=== PATIENT | male | born 1970 | race Caucasian/White ===

== ENCOUNTER 2017-02-12 20:16 | Emergency (ER) | payer OTHER, BC ==
[~2017-02-12] VITALS: Ht 177.8 cm; Wt 100.2 kg
[~2017-02-12 20:16] MED LIST: ASPIRIN81 MG PO; CARVEDILOL3.125 MG PO; EFFIENT10 MG PO; FLEXERIL PO; INVOKANA300 MG PO; LIPITOR80 MG PO; METFORMIN500 MG PO; RAMIPRIL2.5 MG PO; ULTRAM50 M1 PO; VICTOZA18 MG/3 ML SC
[2017-02-12] MEDS ORDERED: ORPHENADRINE100 MG PO (21:55)
[2017-02-12] MEDS ORDERED: PERCOCET 5/325M1 TAB PO (21:55)
[2017-02-12 22:03] VITALS: BP 132/89
== END 2017-02-12 22:05 | disposition home or self-care (01) | DRG 563 ==
LOC: ED 20:16
DX: S39.012A Strain of muscle, fascia and tendon of lower back, initial encounter (principal); I10 Essential (primary) hypertension; E11.9 Type 2 diabetes mellitus without complications; I25.2 Old myocardial infarction; V89.2XXA Person injured in unspecified motor-vehicle accident, traffic, initial encounter

== ENCOUNTER 2019-12-07 | Emergency (ER) | payer OTHER ==
[~2019-12-07] MED LIST changes: +ORPHENADRINE100 MG PO; +PERCOCET 5/325M1 TAB PO
[2019-12-07 19:58] LABS: HEMOGLOBIN 15.3 g/dl (14.0-18.0); IMMATURE GRANULOCYTES 0.3 % (0.0-5.0); MEAN CORPUSCULAR HGB 28.2 pG CALC (26.0-32.0); NEUT# 5.24 thou/uL (1.82-7.42); RED BLOOD COUNT 5.42 mill/uL (4.70-6.10); RED CELL DISTRI WIDTH 13.1 % (11.5-15.5)
[2019-12-07] MEDS ORDERED: EZETIMIBE10 MG PO (20:36)
[2019-12-07] MEDS ORDERED: OZEMPIC2 MG/1.51 IJ (20:37)
[2019-12-07] MEDS ORDERED: INVOKAMET PO (20:37)
[2019-12-07] MEDS ORDERED: ATORVASTATIN CA80 MG PO (20:38)
[2019-12-07] MEDS ORDERED: GLIPIZIDE ER2.5 MG PO (20:39)
[2019-12-07] MEDS ORDERED: TAM75CAP PO (21:01)
== END 2019-12-07 21:10 | disposition home or self-care (01) | DRG 195 ==
PROVIDERS: Family Medicine
DX: J10.1 Influenza due to other identified influenza virus with other respiratory manifestations (principal); I10 Essential (primary) hypertension; E11.9 Type 2 diabetes mellitus without complications; I25.2 Old myocardial infarction; Z79.84 Long term (current) use of oral hypoglycemic drugs